=== PATIENT | male | born 1965 | race Caucasian/White ===

== ENCOUNTER → 2019-07-31 | Outpatient (CLI) | payer OTHER ==
--- NOTE | 2019-07-31 14:27 | RAD ---
EXAM: Chest, 2 views. HISTORY: COPD. COMPARISON: None. FINDINGS: 2 views of the chest are obtained. There is no infiltrate, pleural effusion or pneumothorax. The heart is normal in size. IMPRESSION: No acute pulmonary finding. Electronically signed by: Jackie Randall MD (07/31/2019 2:24 PM) [facility] [place]
== END | disposition home or self-care (01) ==
LOC: PF 10:10
PROVIDERS: ATTEND Surgery
DX: J44.9 Chronic obstructive pulmonary disease, unspecified (principal); F17.210 Nicotine dependence, cigarettes, uncomplicated
CPT/HCPCS: 71046; 94010; 94729